=== PATIENT | male | born 1990 | race African-American/Black ===

== ENCOUNTER 2016-12-20 20:34 | Emergency (ER) | payer SELFPAY ==
[~2016-12-20] VITALS: Ht 172.7 cm; Wt 68.5 kg
[2016-12-20 20:36] VITALS: BP 131/77; PULSE 107; RESP 16; TEMP 98.6; O2SAT 99
--- NOTE | 2016-12-20 21:40 | PD ---
Physical Exam Date Seen by Provider: Dec 20, 2016 Time Seen by Provider: 21:38 Narrative 26 yo male here for dental pain. Has had it since today, no other medical issues. Not radiating. Vitals stable in triage. Awaiting bed placement Data Data Last Documented VS Vital Signs Date Time Temp Pulse Resp B/P (MAP) Pulse Ox O2 Delivery O2 Flow Rate FiO2 12/20/16 20:36 98.6 107 16 131/77 (95) 99 Room Air [facility] Medical Record Reviewed: Yes Supervised Visit with MARCELO: Sky Henderson Dec 20, 2016 21:40
== END 2016-12-20 22:45 | disposition left against medical advice (07) ==
LOC: NETRI 20:34
DX: K08.89 Other specified disorders of teeth and supporting structures (principal); Z53.21 Procedure and treatment not carried out due to patient leaving prior to being seen by health care provider
CPT/HCPCS: 99281